=== PATIENT | male | born 1965 | race Caucasian/White ===

== ENCOUNTER 2022-01-17 14:46 | Outpatient (CLI) | payer BC, SELFPAY ==
[2022-01-17 21:34] LABS: Chloride* 105 mmol/L (96-114)
[2022-01-17 21:37] LABS: Creatinine* 1.2 mg/dL (0.5-1.5); Estimated Glomerular Filt Rate 71 ml/min; Potassium* 4.7 mmol/L (3.6-5.1); Sodium* 139 mmol/L (135-149)
[2022-01-17 21:38] LABS: Blood Urea Nitrogen* 26 mg/dL (7-30); Calcium* 9.5 mg/dL (8.4-10.6); Carbon Dioxide* 26 mmol/L (20-32); Glucose* 93 mg/dL (60-115); Magnesium* 2.3 mg/dL (1.5-2.6)
== END 2022-01-17 14:47 | disposition home or self-care (01) ==
PROVIDERS: PCP Physician Assistant Medical; Visit Provider Family Medicine
DX: I10 Essential (primary) hypertension (principal)
CPT/HCPCS: 80048; 83735

== ENCOUNTER 2022-03-04 07:51 | Outpatient (CLI) | payer BC, SELFPAY ==
[2022-03-04 14:21] LABS: Albumin* 4.3 g/dL (3.3-5.0); Chloride* 105 mmol/L (96-114)
[2022-03-04 14:22] LABS: Sodium* 141 mmol/L (135-149)
[2022-03-04 14:24] LABS: Alkaline Phosphatase* 85 U/L (40-150); Aspartate Amino Transferase* 24 U/L (12-35); Bilirubin Total* 0.9 mg/dL (0.1-1.5); Blood Urea Nitrogen* 31 mg/dL (7-30); Carbon Dioxide* 27 mmol/L (20-32); Cholesterol* 170 mg/dL (90-199); Creatinine* 1.2 mg/dL (0.5-1.5); Estimated Glomerular Filt Rate 71 ml/min; Glucose* 85 mg/dL (60-115); Total Protein* 6.9 g/dL (6.0-8.3); Triglycerides* 92 mg/dL (40-149)
[2022-03-04 14:25] LABS: Alanine Aminotransferase* 23 U/L (4-50); Calcium* 9.1 mg/dL (8.4-10.6); HDL Cholesterol* 38 mg/dL (>=40); LDL Cholesterol Calculated 114 mg/dL (<100)
[2022-03-04 15:16] LABS: Hepatitis C Virus Antibody* Negative (Negative)
== END 2022-03-04 07:52 | disposition home or self-care (01) ==
PROVIDERS: PCP Physician Assistant Medical; Visit Provider Family Medicine
DX: Z00.00 Encounter for general adult medical examination without abnormal findings (principal); I10 Essential (primary) hypertension; Z13.1 Encounter for screening for diabetes mellitus; Z13.6 Encounter for screening for cardiovascular disorders; Z11.59 Encounter for screening for other viral diseases
CPT/HCPCS: 80053; 80061; 86803

== ENCOUNTER 2023-03-13 13:24 | Outpatient (CLI) | payer OTHER, SELFPAY | END 2023-03-13 13:25 | disposition home or self-care (01) | PROVIDERS: PCP Family Medicine; Visit Provider Family Medicine | DX: I10 Essential (primary) hypertension (principal) | CPT/HCPCS: 80053; 82043; 82570 ==

== ENCOUNTER 2024-07-22 07:56 | Outpatient (CLI) | payer BC, SELFPAY | END 2024-07-22 07:57 | disposition home or self-care (01) | LOC: NFLDREF 07-23 03:30 | PROVIDERS: Visit Provider Physician Assistant Medical | DX: I10 Essential (primary) hypertension (principal); G47.9 Sleep disorder, unspecified; Z12.5 Encounter for screening for malignant neoplasm of prostate; Z13.6 Encounter for screening for cardiovascular disorders; Z13.29 Encounter for screening for other suspected endocrine disorder | CPT/HCPCS: 80053; 80061; 84439; 84443; G0103 ==